=== PATIENT | male | born 1990 | race Caucasian/White ===

== ENCOUNTER 2018-02-04 21:26 | Emergency (ER) | payer OTHER, SELFPAY ==
[2018-02-05 00:36] LABS: Absolute Neutrophil 7.2 K/uL (1.8-8.0); Basophils % 0.3 % (0-1.3); Eosinophils % 1.1 % (0-4.4); Hematocrit 43.4 % (39.6-49.0); Lymphocytes % 26.2 % (15.3-44.8); MCH 30.7 pg (27.0-35.0); MCV 88.7 fL (80-100); MPV 10.7 fL (7.6-11.3); Monocytes % 8.8 % (3.3-12.3); RBC Red Blood Cell Count 4.89 M/uL (4.33-5.43)
[2018-02-05 00:44] LABS: Bicarbonate 27 mEq/L (21-31); Glucose Level 107 mg/dL (65-120); Potassium 3.3 mEq/L (3.6-5.0); Sodium Level 137 mEq/L (135-145)
[2018-02-05 00:45] LABS: BUN Blood Urea Nitrogen 10 mg/dL (6-20)
[2018-02-05] MEDS ORDERED: CYCLOBENZAPRINE 10 MG TAB ONE (01:02)
[2018-02-05] MEDS ORDERED: KETOROLAC 30 MG/ML INJ ONE (01:03)
--- NOTE | 2018-02-05 01:31 | ER ---
Nurse's Notes [facility] Name: Sachin Thomas Age: 27 yrs Sex: Male : 1990 Arrival Date: 02/04/2018 Time: 21:27 Bed 27 Private MD: Diagnosis: Chest pain, unspecified Presentation: 02/04 22:27 Presenting complaint: Patient states: that he is having chest pain that is worse with fc deep breathing and any movement. States he has a cough but denies any congestion or fever. Transition of care: patient was not received from another setting of care. Onset of symptoms was February 04, 2018. Initial Sepsis Screen: Does the patient meet any 2 criteria?. Care prior to arrival: Medication(s) given: Motrin, 400 mg, last at 1700 Lorazepam last at 1700. 22:27 Method Of Arrival: Ambulatory 22:27 Acuity: KAREL 3 02/05 01:07 Initial Sepsis Screen: Does the patient have a suspected source of infection? No. tl3 Patient's initial sepsis screen is negative. Triage Assessment: 02/04 22:32 General: Appears uncomfortable, slender, Behavior is calm, cooperative, appropriate for age. Pain: Complains of pain in chest Pain currently is 10 out of 10 on a pain scale. Quality of pain is described as aching, dull, sharp, Pain began today Is continuous, Aggravated by deep breathing or movement. EENT: No deficits noted. Neuro: Level of Consciousness is awake, alert, obeys commands, Oriented to person, place, time, situation. Cardiovascular: Reports chest pain, with movement or deep breathing Heart tones S1 S2 Capillary refill < 3 seconds Pulses are all present. Rhythm is regular Chest pain is described as vague, is located in right chest wall began today episodes are continuous is aggravated by activity, breathing. Respiratory: Airway is patent Respiratory effort is even, unlabored, Respiratory pattern is regular, symmetrical, Breath sounds are clear bilaterally. but refuses to take any deep breathes Onset: The symptoms/episode began/occurred gradually, the patient has mild shortness of breath. GI: No deficits noted. : No deficits noted. Derm: Skin is pink, warm \T\ dry. Musculoskeletal: Circulation, motion, and sensation intact. Capillary refill < 3 seconds, Range of motion: intact in all extremities. Historical: - Allergies: 22:30 No Known Allergies; fc - Home Meds: 22:30 None [Active]; fc - PMHx: 22:30 None; fc - PSHx: 22:30 None; fc - Immunization history:: Last tetanus immunization: unknown. - Social history:: Smoking status: Patient uses tobacco products, smokes one pack cigarettes per day. Patient uses alcohol, every other day. street drugs, marijuana. Screenin:32 Abuse screen: Denies threats or abuse. Nutritional screening: No deficits noted. tl3 Tuberculosis screening: No symptoms or risk factors identified. Fall Risk None identified. Assessment: 23:32 General: Appears distressed, uncomfortable, slender, well groomed, well developed, well tl3 nourished, Behavior is calm, cooperative, appropriate for age. Pain: Complains of pain in chest Pain does not radiate. Pain currently is 8 out of 10 on a pain scale. Neuro: Level of Consciousness is awake, alert, obeys commands, Oriented to person, place, time, situation, Appropriate for age. Cardiovascular: Reports chest pain, since tonight, reproducible with palpation, movement of left arm and deep breathing. Respiratory: Airway is patent Trachea midline Respiratory effort is even, unlabored, Respiratory pattern is regular, symmetrical, Breath sounds are clear bilaterally. GI: No signs and/or symptoms were reported involving the gastrointestinal system. Abdomen is flat, Bowel sounds present X 4 quads. diminished in right upper quadrant, left upper quadrant, right lower quadrant and left lower quadrant. : No signs and/or symptoms were reported regarding the genitourinary system. EENT: No signs and/or symptoms were reported regarding the EENT system. Derm: No signs and/or symptoms reported regarding the dermatologic system. 02/05 01:07 Reassessment: Patient appears in no apparent distress at this time. No changes from tl3 previously documented assessment. Patient and/or family updated on plan of care and expected duration. Pain level reassessed. Patient is alert, oriented x 3, equal unlabored respirations, skin warm/dry/pink. pt sleeping in bed, arouses easily, friend at bedside. Vital Signs: 02/04 22:30 BP 117 / 71; Pulse 61; Resp 18; Temp 98.1(O); Pulse Ox 98% on R/A; Weight 62.6 kg (R); fc Height 5 ft. 10 in. (177.80 cm); Pain 10/10; 23:32 BP 109 / 71; Pulse 55; Resp 18; Pulse Ox 98% on R/A; tl3 02/05 01:07 BP 113 / 71; Pulse 50; Resp 18; Pulse Ox 98% ; tl3 02/04 22:30 Body Mass Index 19.80 (62.60 kg, 177.80 cm) ED Course: 02/04 21:27 Patient arrived in ED. am2 22:29 Triage completed. 22:32 Arm band placed on right wrist. Patient placed in waiting room. 22:56 Rafa Fried NP is PHCP. pm1 22:56 Orlando Mix MD is Attending Physician. pm1 22:56 Sandi Bravo, SIMONA is Primary Nurse. tl3 23:32 No apparent distress. tl3 23:32 Patient has correct armband on for positive identification. Placed in gown. Bed in low tl3 position. Call light in reach. java user interface developer on. Pulse ox on. NIBP on. Warm blanket given. 23:32 No provider procedures requiring assistance completed. Inserted saline lock: 20 gauge tl3 in right forearm, using aseptic technique. Blood collected. Patient maintains SpO2 saturation greater than 95% on room air. 02/05 00:32 XRAY Chest (1 view) In Process Unspecified. EDMS 01:55 IV discontinued. rk2 Administered Medications: 01:06 Drug: TORadol 30 mg Route: IVP; Infused Over: 2 mins; Site: left forearm; tl3 01:50 Follow up: Response: No adverse reaction rk2 01:06 Drug: Flexeril 10 mg Route: PO; tl3 01:50 Follow up: Response: No adverse reaction rk2 Outcome: 01:30 Discharge ordered by . pm1 01:54 Discharged to home ambulatory. rk2 01:54 Condition: good 01:54 Discharge instructions given to patient. 01:55 Patient left the ED. rk2 Signatures: Dispatcher [employer] EDMS Sienna Knowles RN RN Rafa Fried NP CREAM HAULER pm1 Ester Ta am2 Kemi Villagomez RN RN rk2 Sandi Bravo RN RN tl3
--- NOTE | 2018-02-05 01:31 | EDPHYS ---
Physician Documentation [facility] Name: Sachin Thomas Age: 27 yrs Sex: Male : 1990 Arrival Date: 02/04/2018 Time: 21:27 Bed 27 Private MD: ED Physician Orlando Mix HPI: 02/05 01:00 This 27 yrs old Male presents to ER via Ambulatory with complaints of Chest pm1 Pain. 01:00 The patient or guardian reports chest pain that is located primarily in the anterior pm1 chest wall, right. Onset: The symptoms/episode began/occurred this morning. The pain does not radiate. Associated signs and symptoms: Pertinent positives: cough, Pertinent negatives: abdominal pain, fever, shortness of breath. Modifying factors: The patient symptoms are alleviated by nothing, the patient symptoms are aggravated by Deep breathing and palpation. Duration: The patient or guardian reports a single episode, that is still ongoing. Severity of pain: in the emergency department the pain is actually worse. The patient has not experienced similar symptoms in the past. Historical: - Allergies: 02/04 22:30 No Known Allergies; fc - Home Meds: 22:30 None [Active]; fc - PMHx: 22:30 None; fc - PSHx: 22:30 None; fc - Immunization history:: Last tetanus immunization: unknown. - Social history:: Smoking status: Patient uses tobacco products, smokes one pack cigarettes per day. Patient uses alcohol, every other day. street drugs, marijuana. ROS: 02/05 01:00 Constitutional: Negative for fever, chills, and weight loss, Eyes: Negative for injury, pm1 pain, redness, and discharge, ENT: Negative for injury, pain, and discharge, Neck: Negative for injury, pain, and swelling. Respiratory: Negative for shortness of breath, cough, wheezing, and pleuritic chest pain, Abdomen/GI: Negative for abdominal pain, nausea, vomiting, diarrhea, and constipation, Back: Negative for injury and pain, MS/Extremity: Negative for injury and deformity, Skin: Negative for injury, rash, and discoloration, Neuro: Negative for headache, weakness, numbness, tingling, and seizure. Cardiovascular: Positive for chest pain, Negative for edema, palpitations. Exam: 01:00 Constitutional: This is a well developed, well nourished patient who is awake, alert, pm1 and in no acute distress. Head/Face: Normocephalic, atraumatic. Eyes: Pupils equal round and reactive to light, extra-ocular motions intact. Lids and lashes normal. Conjunctiva and sclera are non-icteric and not injected. Cornea within normal limits. Periorbital areas with no swelling, redness, or edema. ENT: Nares patent. No nasal discharge, no septal abnormalities noted. Tympanic membranes are normal and external auditory canals are clear. Oropharynx with no redness, swelling, or masses, exudates, or evidence of obstruction, uvula midline. Mucous membranes moist. Neck: Trachea midline, no thyromegaly or masses palpated, and no cervical lymphadenopathy. Supple, full range of motion without nuchal rigidity, or vertebral point tenderness. No Meningismus. 01:00 Cardiovascular: Regular rate and rhythm with a normal S1 and S2. No gallops, murmurs, or rubs. Normal PMI, no JVD. No pulse deficits. Respiratory: Lungs have equal breath sounds bilaterally, clear to auscultation and percussion. No rales, rhonchi or wheezes noted. No increased work of breathing, no retractions or nasal flaring. Abdomen/GI: Soft, non-tender, with normal bowel sounds. No distension or tympany. No guarding or rebound. No evidence of tenderness throughout. Back: No spinal tenderness. No costovertebral tenderness. Full range of motion. Skin: Warm, dry with normal turgor. Normal color with no rashes, no lesions, and no evidence of cellulitis. MS/ Extremity: Pulses equal, no cyanosis. Neurovascular intact. Full, normal range of motion. 01:00 Chest/axilla: Inspection: normal, Palpation: crepitus, is not appreciated, tenderness, of the anterior aspect of right upper chest, that totally reproduces the patient's complaints. Vital Signs: 02/04 22:30 BP 117 / 71; Pulse 61; Resp 18; Temp 98.1(O); Pulse Ox 98% on R/A; Weight 62.6 kg (R); fc Height 5 ft. 10 in. (177.80 cm); Pain 10/10; 23:32 BP 109 / 71; Pulse 55; Resp 18; Pulse Ox 98% on R/A; tl3 02/05 01:07 BP 113 / 71; Pulse 50; Resp 18; Pulse Ox 98% ; tl3 02/04 22:30 Body Mass Index 19.80 (62.60 kg, 177.80 cm) fc MDM: 02/04 23:44 Patient medically screened. pm1 02/05 01:29 Data reviewed: vital signs, nurses notes. Data interpreted: Pulse oximetry: on room air pm1 is 98 %. Interpretation: normal. Counseling: I had a detailed discussion with the patient and/or guardian regarding: the historical points, exam findings, and any diagnostic results supporting the discharge/admit diagnosis, lab results, radiology results, the need for outpatient follow up, to return to the emergency department if symptoms worsen or persist or if there are any questions or concerns that arise at home. 02/04 23:46 Order name: Basic Metabolic Panel; Complete Time: 00:56 pm1 02/04 23:46 Order name: CBC with Diff; Complete Time: 00:44 pm1 02/04 23:46 Order name: Troponin (emerg Dept Use Only); Complete Time: 00:56 pm1 02/04 23:46 Order name: XRAY Chest (1 view) pm1 02/04 23:46 Order name: EKG; Complete Time: 23:46 pm1 02/04 23:46 Order name: Cardiac monitoring; Complete Time: 00:06 pm1 02/04 23:46 Order name: EKG - Nurse/Tech; Complete Time: 00:06 pm1 02/04 23:46 Order name: IV Saline Lock; Complete Time: 00:06 pm1 02/04 23:46 Order name: Labs collected and sent; Complete Time: 00:06 pm1 Administered Medications: 01:06 Drug: TORadol 30 mg Route: IVP; Infused Over: 2 mins; Site: left forearm; tl3 01:50 Follow up: Response: No adverse reaction rk2 01:06 Drug: Flexeril 10 mg Route: PO; tl3 01:50 Follow up: Response: No adverse reaction rk2 Disposition: 02:46 Co-signature as Attending Physician, Orlando Mix MD. Disposition: 02/05/18 01:30 Discharged to Home. Impression: Chest pain, unspecified. - Condition is Stable. - Discharge Instructions: Nonspecific Chest Pain. - Medication Reconciliation Form, Thank You Letter, Work release form form. - Follow up: Emergency Department; When: As needed; Reason: Worsening of condition. Follow up: Private Physician; When: 2 - 3 days; Reason: Recheck today's complaints, Continuance of care, Re-evaluation by your physician. - Problem is new. - Symptoms have improved. Signatures: Dispatcher [employer] EDSienna Lambert RN RN fc Rafa Fried, [employer] DATA STORAGE SPECIALIST pm1 Orlando Mix MD MD gs Kidder, Rhonda RN RN rk2 Sandi Bravo RN RN tl3
--- NOTE | 2018-02-05 07:58 | RAD REPORT ---
EXAM DESCRIPTION: Julienne Single View02/05/2018 12:32 am CLINICAL HISTORY: Chest pain COMPARISON: none FINDINGS: The lungs appear clear of acute infiltrate. The heart is normal size IMPRESSION: No acute abnormalities displayed
--- NOTE | 2018-02-05 09:15 | EKG ---
Test Date: 2018-02-05 Test Time: 00:32:34 Pump Tender: WES MEASUREMENT RESULTS: Intervals: Rate: 50 IN: 166 QRSD: 106 QT: 416 QTc: 379 [place]: P: 34 IN: 166 QRS: 51 T: 46 INTERPRETIVE STATEMENTS: Sinus bradycardia with sinus arrhythmia Otherwise normal ECG No previous ECG available for comparison Electronically Signed On 02-05-18 09:13:45 CDT by Seb Mary
== END 2018-02-05 01:55 | disposition home or self-care (01) ==
LOC: ER 21:26
DX: R07.9 Chest pain, unspecified (principal); F17.210 Nicotine dependence, cigarettes, uncomplicated
CPT/HCPCS: 36415; 71045; 80048; 84484; 85025; 93005; 96374; 99285

== ENCOUNTER 2018-09-09 19:47 | Emergency (ER) | payer SELFPAY ==
[2018-09-09] MEDS ORDERED: TETRACAINE HCL 0.5% 2ML OPTH ONE (20:28)
[2018-09-09] MEDS ORDERED: FLUORESCEIN SODIUM 0.6 MG/WRAP ONE (20:29)
--- NOTE | 2018-09-09 21:02 | ER ---
Nurse's Notes [facility] Name: Sachin Thomas Age: 27 yrs Sex: Male : 1990 Arrival Date: 09/09/2018 Time: 19:50 Bed 7 Private MD: Diagnosis: Injury of conjunctiva and corneal abrasion without foreign body, right eye Presentation: 09/09 19:53 Presenting complaint: Patient states: He got saw dust in his eye at approximately 1530 aj1 this afternoon and has not been able to get it out since. Redness and tearing noted to sclera to right eye. Transition of care: patient was not received from another setting of care. Onset of symptoms was September 09, 2018. Risk Assessment: Do you want to hurt yourself or someone else? Patient reports no desire to harm self or others. Initial Sepsis Screen: Does the patient meet any 2 criteria? No. Patient's initial sepsis screen is negative. Does the patient have a suspected source of infection? No. Patient's initial sepsis screen is negative. Care prior to arrival: None. 19:53 Method Of Arrival: Ambulatory aj1 19:53 Acuity: KAREL 4 aj1 Triage Assessment: 19:56 General: Appears in no apparent distress. uncomfortable, Behavior is cooperative, aj1 appropriate for age. Pain: Complains of pain in right eye Pain currently is 7 out of 10 on a pain scale. EENT: Eyes are tearing on right lower eyelid Sclera/Cornea are reddened in outer aspect of conjuctiva of right eye, iris of right eye and inner aspect of conjuctiva of right eye. Neuro: Level of Consciousness is awake, alert, obeys commands. Cardiovascular: Patient's skin is warm and dry. Respiratory: Airway is patent Respiratory effort is even, unlabored, Respiratory pattern is regular, symmetrical. Historical: - Allergies: 19:56 No Known Allergies; aj1 - Home Meds: 19:56 None [Active]; aj1 - PMHx: 19:56 None; aj1 - PSHx: 19:56 None; aj1 - Immunization history:: Last tetanus immunization: unknown, Flu vaccine is not up to date. - Social history:: Smoking status: Patient uses tobacco products, smokes one-half pack cigarettes per day. - Ebola Screening: : Patient denies travel to an Ebola-affected area in the 21 days before illness onset. Screenin:10 Abuse screen: Denies threats or abuse. Nutritional screening: No deficits noted. ea Tuberculosis screening: No symptoms or risk factors identified. Fall Risk None identified. Assessment: 20:14 General: Appears uncomfortable, Behavior is calm, cooperative. Pain: Complains of pain ea in right eye Quality of pain is described as burning. Neuro: Level of Consciousness is awake, alert, obeys commands, Oriented to person, place, time, situation. Cardiovascular: Patient's skin is warm and dry. Respiratory: Airway is patent Respiratory effort is even, unlabored, Respiratory pattern is regular, symmetrical. EENT: Eyes are tearing on right eye. Derm: Skin is pink, warm \T\ dry. Musculoskeletal: Circulation, motion, and sensation intact. 21:30 Reassessment: Patient and/or family updated on plan of care and expected duration. Pain ea level reassessed. Patient is alert, oriented x 3, equal unlabored respirations, skin warm/dry/pink. Discharge instructions given to patient, verbalized the understanding of instruction. 21:31 Reassessment: DC instructions given to patient and mother. Patient agree with DC ao instructions and to follow up. No question at this time. Vital Signs: 19:56 BP 129 / 83; Pulse 65; Resp 18; Temp 97.4; Pulse Ox 98% on R/A; Weight 65.77 kg (R); aj1 Height 5 ft. 10 in. (177.80 cm) (R); Pain 7/10; 20:43 BP 118 / 70; Pulse 61; Resp 18; Pulse Ox 100% on R/A; ea 19:56 Body Mass Index 20.81 (65.77 kg, 177.80 cm) aj1 Visual Acuity: 20:10 Left Eye Visual acuity 20/20, ; Right Eye Visual acuity 20/20, ; Both Eyes Visual ea acuity 20/20; Without Lenses; ED Course: 19:50 Patient arrived in ED. es 19:55 Triage completed. aj1 19:56 Arm band placed on Patient placed in an exam room. aj1 20:04 Leonel Delong MD is Attending Physician. tw4 20:05 Beverly Wilson, SIMONA is Primary Nurse. ea 20:13 Patient has correct armband on for positive identification. Bed in low position. Call ea light in reach. Side rails up X2. 21:30 Assist provider with eye exam of left eye. using fluorescein stain, Performed by chris Delong MD Patient tolerated well. Patient did not have IV access during this emergency room visit. Administered Medications: 21:30 Drug: Gentamicin Drops 0.3 % 2 drops Route: Ophthalmic; Site: right eye; ao 21:30 Follow up: Response: Medication administered at discharge. ao Outcome: 21:02 Discharge ordered by . tw4 21:31 Discharged to home ambulatory. ao 21:31 Condition: stable 21:31 Discharge instructions given to patient, Instructed on discharge instructions, follow up and referral plans. Demonstrated understanding of instructions, follow-up care, medications, Prescriptions given X 1. 21:32 Patient left the ED. ao Signatures: Annie Laguna, RN RN Nkechi Chino Alex RN RN Beverly Winters RN Leonel Irving ea, MD MD tw4
[2018-09-09] MEDS ORDERED: GENTAMICIN 0.3% OPTH DROP 5ML ONE (21:29)
[2018-09-09] MEDS ORDERED: DEXAMETHASONE 4 MG/ML VIAL ONE (23:02)
--- NOTE | 2018-09-10 21:32 | EDPHYS ---
Physician Documentation [facility] Name: Sachin Thomas Age: 27 yrs Sex: Male : 1990 Arrival Date: 09/09/2018 Time: 19:50 Bed 7 Private MD: ED Physician Leonel Delong HPI: 09/10 06:49 This 27 yrs old Male presents to ER via Ambulatory with complaints of Foreign tw4 Body In Eye. 06:49 The patient is experiencing foreign body sensation, redness, The patient sustained tw4 Unknown. Onset: The symptoms/episode began/occurred yesterday. Aggravated by nothing. Alleviated by nothing. Associated signs and symptoms: Pertinent positives: None. Severity of symptoms: At their worst the symptoms were moderate in the emergency department the symptoms are unchanged. The patient has not experienced similar symptoms in the past. Historical: - Allergies: 09/09 19:56 No Known Allergies; aj1 - Home Meds: 19:56 None [Active]; aj1 - PMHx: 19:56 None; aj1 - PSHx: 19:56 None; aj1 - Immunization history:: Last tetanus immunization: unknown, Flu vaccine is not up to date. - Social history:: Smoking status: Patient uses tobacco products, smokes one-half pack cigarettes per day. - Ebola Screening: : Patient denies travel to an Ebola-affected area in the 21 days before illness onset. ROS: 09/10 06:49 Constitutional: Negative for fever, chills, and weight loss, Eyes: Negative for injury, tw4 pain, redness, and discharge, Cardiovascular: Negative for chest pain, palpitations, and edema, Respiratory: Negative for shortness of breath, cough, wheezing, and pleuritic chest pain, Abdomen/GI: Negative for abdominal pain, nausea, vomiting, diarrhea, and constipation, MS/Extremity: Negative for injury and deformity, Skin: Negative for injury, rash, and discoloration. Exam: 06:49 Constitutional: This is a well developed, well nourished patient who is awake, alert, tw4 and in no acute distress. Head/Face: Normocephalic, atraumatic. Chest/axilla: Normal chest wall appearance and motion. Nontender with no deformity. No lesions are appreciated. Cardiovascular: Regular rate and rhythm with a normal S1 and S2. No gallops, murmurs, or rubs. Normal PMI, no JVD. No pulse deficits. Respiratory: Lungs have equal breath sounds bilaterally, clear to auscultation and percussion. No rales, rhonchi or wheezes noted. No increased work of breathing, no retractions or nasal flaring. Abdomen/GI: Soft, non-tender, with normal bowel sounds. No distension or tympany. No guarding or rebound. No evidence of tenderness throughout. MS/ Extremity: Pulses equal, no cyanosis. Neurovascular intact. Full, normal range of motion. Neuro: Awake and alert, GCS 15, oriented to person, place, time, and situation. Cranial nerves II-XII grossly intact. Motor strength 5/5 in all extremities. Sensory grossly intact. Cerebellar exam normal. Normal gait. Vital Signs: 09/09 19:56 BP 129 / 83; Pulse 65; Resp 18; Temp 97.4; Pulse Ox 98% on R/A; Weight 65.77 kg (R); aj1 Height 5 ft. 10 in. (177.80 cm) (R); Pain 7/10; 20:43 BP 118 / 70; Pulse 61; Resp 18; Pulse Ox 100% on R/A; ea 19:56 Body Mass Index 20.81 (65.77 kg, 177.80 cm) aj1 Visual Acuity: 20:10 Left Eye Visual acuity 20/20, ; Right Eye Visual acuity 20/20, ; Both Eyes Visual ea acuity 20/20; Without Lenses; MDM: 20:04 Patient medically screened. tw4 Administered Medications: 21:30 Drug: Gentamicin Drops 0.3 % 2 drops Route: Ophthalmic; Site: right eye; ao 21:30 Follow up: Response: Medication administered at discharge. ao Disposition: 09/10 06:53 Chart complete. tw4 Disposition: 09/09/18 21:02 Discharged to Home. Impression: Injury of conjunctiva and corneal abrasion without foreign body, right eye. - Condition is Stable. - Discharge Instructions: Corneal Abrasion, [id number]. - Prescriptions for Gentamicin 0.3 % Ophthalmic Drops - instill 1 drop by OPHTHALMIC route every 4 hours for 7 days; 1 bottle. - Medication Reconciliation Form, Thank You Letter, Antibiotic Education, Prescription Opioid Use form. - Follow up: Private Physician; When: Upon discharge from the Emergency Department; Reason: Further diagnostic work-up, Recheck today's complaints, Continuance of care. - Problem is new. - Symptoms have improved. Signatures: Annie Laguna RN RN aj1 Adriel Dunbar RN RN Leonel Haley MD MD tw4 Corrections: (The following items were deleted from the chart) 09/09 21:32 21:02 09/09/2018 21:02 Discharged to Home. Impression: Injury of conjunctiva and ao corneal abrasion without foreign body, right eye. Condition is Stable. Forms are Medication Reconciliation Form, Thank You Letter, Antibiotic Education, Prescription Opioid Use. Follow up: Private Physician; When: Upon discharge from the Emergency Department; Reason: Further diagnostic work-up, Recheck today's complaints, Continuance of care. Problem is new. Symptoms have improved. tw4
== END 2018-09-09 21:32 | disposition home or self-care (01) ==
LOC: ER 19:47
DX: S05.01XA Injury of conjunctiva and corneal abrasion without foreign body, right eye, initial encounter (principal); F17.210 Nicotine dependence, cigarettes, uncomplicated
CPT/HCPCS: 99283

== ENCOUNTER 2023-05-21 07:32 | Emergency (ER) | payer SELFPAY ==
--- OUTSIDE RECORDS SUMMARY | 2023-05-21 07:35 | XMS REPORT | Continuity of Care Document ---
:1990 Author Organization [facility] t Address [address] [place] [address] [place] [id number] Care Team Providers Name Role Phone Pcp, Patient Does Not Have A Primary Care Physician [id number] Ester Rousseau MD Attending Clinician Gi Howe PA-C Attending Clinician GI HOWE Attending Clinician Unavailable Problems Condition Condition Condition Status Onset Resolution Last Treating Co mments Source Name Details Category Date Date Treatment Clinician Date No known No known Disease Unive rs active active ity of problems problems [facility] Allergies, Adverse Reactions, Alerts Allergy Allergy Status Severity Reaction(s) Onset Inactive Treating Comm ents Source Name Type Date Date Clinician NO KNOWN Drug Active Univers ALLERGIE Class ity of S [facility] Social History Social Habit Start Date Stop Date Quantity Comments Source Exposure to Not sure [facility] SARS-CoV-2 (event) Medica l Branch Tobacco use and 2019-07-05 2019-07-05 Never used [facility] exposure 00:00:00 00:00:00 [facility] Sex Ass[birth year] At [birth year] [facility] 00:00:00 00:00:00 [facility] Smoking Status Start Date Stop Date Source Current every day smoker 2019-07-05 00:00:00 Uni versity [facility] Medications Ordered Filled Start Stop Current Ordering Indication Dosage Frequency Signature Comments Components Source Medication Medication Date Date Medication? Clinician (SIG) Name Name azelastine Yes [id number] 1{spray Use 1 Univers 137 mcg 1-03 } [place] in ity of (0.1 %) 00:00: each [place] nasal spray 00 nostril 2 Med ical (two) Branch times daily. Use in each nostril as directed fluticasone Yes [id number] 1{spray Use 1 Univers propionate 03 } [place] in ity o f 50 00:00: each [place] mcg/actuati 00 nostril Medic al on nasal daily. Branch spray cetirizine Yes [id number] 10mg Take 1 Univers (ZYRTEC) 10 10-22 tablet by ity of mg tablet 00:00: mouth [place] 00 daily. Medical Branch amoxicillin 2021- No [id number] 1{tbl} Take 1 Univers -clavulanat 10-22 tablet by it y of e 00:00: 05:59 mouth 2 [place] (AUGMENTIN) 00 :00 (two) Medical 875-125 mg times Branch per tablet daily for 7 days. Vital Signs Vital Name Observation Time Observation Value Comments Source Systolic blood 2021-10-22 20:56:00 138 [facility]astolic [facility] 2021-10-22 20:56:00 87 mm[Hg] [facility] Heart rate 2021-10-22 20:56:00 84 /min [facility] Body temperature 2021-10-22 20:56:00 36.67 [facility] Respiratory rate 2021-10-22 20:56:00 18 /min [facility] Body height 2021-10-22 20:56:00 177.8 cm [facility] Body weight 2021-10-22 20:56:00 72.576 kg [facility] BMI 2021-10-22 20:56:00 22.96 kg/m2 [facility] Oxygen saturation in 2021-10-22 20:56:00 97 /min [facility] Arterial blood by [facility] Pulse oximetry Branch Procedures This patient has no known procedures. Encounters Start End Encounter Admission Attending Care Care Encounter Source Date/Time Date/Time Type Type Clinicians Facility Department ID 2021-10-22 2021-10-22 Urgent Ester Rousseau [facility] [id number] Univers 15:00[facility]00 [facility]20:00 [id number] [id number] Drew as GINA?BLEA [id number] Ri ryne [address] MEDICAL OFFICE BUILDING 2021-10-22 2021-10-22 Outpatient R [facility] [id number] Univers 15:00:00 15:00:00 [id number] [facility] 2021-10-22 2021-10-22 [facility] [id number] Univers 15:00:00 15:00:00 GI [facility] Results This patient has no known results.
[2023-05-21 07:54] LABS: Absolute Lymphocytes (CBC) 1.8 K/uL (0.7-4.9); Hematocrit 42.3 % (39.6-49.0); Lymphocytes % 31.5 % (15.3-44.8); MCV 87.1 fL (80-100); MPV 9.5 fL (7.6-11.3); RBC Red Blood Cell Count 4.86 M/uL (4.33-5.43)
[2023-05-21] MEDS ORDERED: KETOROLAC 30 MG/ML INJ ONE (07:54)
[2023-05-21] MEDS ORDERED: dexAMETHasone 10 MG/ML VIAL ONE (07:54)
--- NOTE | 2023-05-21 08:13 | RAD REPORT ---
EXAM DESCRIPTION: CT - Chest For Pe Angio - 05/21/2023 7:58 am CLINICAL HISTORY: Chest pain COMPARISON: None. TECHNIQUE: Dynamically enhanced axial 3 mm thick images of the chest were obtained during administra tion of 100 mL Isovue 370 IV contrast. Coronal and oblique reconstruction images were generated and r eviewed. Exam utilizes a protocol for optimal evaluation of pulmonary arterial tree. Maximum intensity projections 3D imaging was utilized All CT scans are performed using dose optimization technique as appropriate and may include automated exposure control or mA/KV adjustment according to patient size. FINDINGS: A pulmonary embolus is not seen. Bovine aorta. The aortic root measures 3.8 centimeters. A pleural effusion is not seen. A pericardial effusion is not seen. A lung consolidation is not present. IMPRESSION: Negative for a pulmonary embolism.
[2023-05-21 08:14] LABS: Albumin 3.9 g/dL (3.4-5.0); Bilirubin Direct 0.2 mg/dL (0-0.2); Bilirubin Indirect, Calculated 0.8 mg/dL (0.2-0.8); Potassium 3.8 mEq/L (3.5-5.1); Protein, Total 7.8 g/dL (6.4-8.2)
--- NOTE | 2023-05-21 08:26 | EDPHYS ---
Physician Documentation [facility] Name: Sachin Thomas Age: 32 yrs Sex: Male : 1990 Arrival Date: 05/21/2023 Time: 07:32 Bed 4 Private MD: ED Physician Ziyad Nolasco HPI: 05/21 08:08 This 32 yrs old Male presents to ER via Ambulatory with complaints of Chest Pain. rn 08:08 The patient or guardian reports chest pain that is located primarily in the right rn lateral anterior chest. The pain does not radiate. Associated signs and symptoms: Pertinent negatives: abdominal pain, cough, palpitations, shortness of breath. The chest pain is described as sharp, stabbing. Duration: The patient or guardian reports multiple episodes. Modifying factors: The symptoms are alleviated by nothing. the symptoms are aggravated by deep breath, movement, palpation of area. 08:10 Severity of pain: At its worst the pain was moderate in the emergency department the rn pain is unchanged. The patient has not experienced similar symptoms in the past. Pt reports right sided chest pain, sharp and stabbing, worse with deep breath, no recent injury, no fever/cough, + vapes. NO hx of dvt/PE. No abd pain or vomiting. No hemoptysis. . Historical: - Allergies: 07:49 No Known Allergies; me1 - PMHx: 07:49 None; me1 - PSHx: 07:49 None; me1 - Immunization history:: Adult Immunizations unknown. - Social history:: Smoking status: Reported history of juuling and/or vaping. - Family history:: not pertinent. - Hospitalizations: : No recent hospitalization is reported. ROS: 08:10 Constitutional: Negative for fever, chills, and weight loss, Cardiovascular: + chest rn pain Respiratory: + stabbing chest pain with deep breath Abdomen/GI: Negative for abdominal pain, nausea, vomiting, diarrhea, and constipation, MS/Extremity: Negative for injury and deformity, Skin: Negative for injury, rash, and discoloration, Neuro: Negative for headache, weakness, numbness, tingling, and seizure. Exam: 08:10 Constitutional: This is a well developed, well nourished patient who is awake, alert, rn appears uncomfortable Head/Face: Normocephalic, atraumatic. Cardiovascular: Bradycardic, regular. No pulse deficits. Respiratory: Diminished breath sounds at bilateral bases, no wheezing, no crepitus Abdomen/GI: soft, non-tender Skin: Warm, dry MS/ Extremity: Pulses equal, no cyanosis. Neurovascular intact. Full, normal range of motion. Equal circumference. Neuro: Awake and alert, GCS 15 08:30 ECG was reviewed by the Attending Physician. rn Vital Signs: 07:43 BP 117 / 72; Pulse 51; Resp 16; Temp 98.4(O); Pulse Ox 100% on R/A; Weight 68.04 kg; me1 Height 5 ft. 10 in. ; Pain 8/10; 08:00 BP 115 / 82; Pulse 50; Resp 18; Pulse Ox 99% on R/A; db 08:30 BP 114 / 75; Pulse 55; Resp 16; Pulse Ox 99% on R/A; db 07:43 Body Mass Index 21.52 (68.04 kg, 177.8 cm) me1 07:43 Pain Scale: Adult me1 MDM: 07:35 Patient medically screened. rn 08:24 Differential diagnosis: acute pericarditis, anxiety, chest wall pain, costochondritis, rn esophagitis, gastritis, gastroesophageal reflux disease (GERD), pericarditis, pleurisy, pneumonia, pneumothorax, pulmonary embolus. Data reviewed: vital signs, nurses notes, lab test result(s), EKG, radiologic studies, CT scan, and as a result, I will discharge patient. Counseling: I had a detailed discussion with the patient and/or guardian regarding: the historical points, exam findings, and any diagnostic results supporting the discharge/admit diagnosis, lab results, radiology results, the need for outpatient follow up, to return to the emergency department if symptoms worsen or persist or if there are any questions or concerns that arise at home. Special discussion: Based on the patient's history, exam, and Dx evaluation, there is no indication for emergent intervention or inpatient Tx. It is understood by the patient/guardian that if the Sx's persist or worsen they need to return immediately for re-evaluation. I discussed with the patient/guardian in detail that at this point there is no indication for admission to the hospital. It is understood, however, that if the symptoms persist or worsen the patient needs to return immediately for re-evaluation. ED course: NO acute findings in workup here, including CT PE. Will dc home as possible pleurisy vs chest wall strain as he has been working on his house and reproducible with palpation and movement. . 05/21 07:42 Order name: Basic Metabolic Panel; Complete Time: 08:15 rn 05/21 07:42 Order name: CBC with Diff; Complete Time: 08:15 rn 05/21 07:42 Order name: LFT's; Complete Time: 08:15 rn 05/21 07:42 Order name: NT PRO-BNP; Complete Time: 08:15 rn 05/21 07:42 Order name: Troponin HS; Complete Time: 08:15 rn 05/21 07:42 Order name: CT Chest For PE Angio; Complete Time: 08:15 rn 05/21 07:42 Order name: EKG; Complete Time: 07:43 rn 05/21 07:42 Order name: Cardiac monitoring; Complete Time: 07:45 rn 05/21 07:42 Order name: EKG - Nurse/Tech; Complete Time: 07:45 rn 05/21 07:42 Order name: IV Saline Lock; Complete Time: 07:45 rn 05/21 07:42 Order name: Labs collected and sent; Complete Time: 07:45 rn 05/21 07:42 Order name: O2 Per Protocol; Complete Time: 07:45 rn 05/21 07:42 Order name: O2 Sat Monitoring; Complete Time: 07:45 rn EC:30 Rate is 55 beats/min. Rhythm is regular. QRS Warner is Normal. ID interval is normal. QRS rn interval is normal. QT interval is normal. No Q waves. T waves are Normal. No ST changes noted. Clinical impression: Sinus bradycardia. Interpreted by me. Reviewed by me. Administered Medications: 07:51 Drug: Ketorolac IVP 30 mg Route: IVP; Site: right antecubital; db 08:44 Follow up: Response: No adverse reaction db 07:51 Drug: Decadron - Dexamethasone IVP 10 mg Route: IVP; Site: right antecubital; db 08:44 Follow up: Response: No adverse reaction db Disposition Summary: 05/21/23 08:25 Discharge Ordered Location: Home rn Problem: new rn Symptoms: have improved rn Condition: Stable rn Diagnosis - Chest pain, unspecified rn Followup: rn - With: Private Physician - When: As needed - Reason: Recheck today's complaints, Re-evaluation by your physician Discharge Instructions: - Discharge Summary Sheet rn - Nonspecific Chest Pain, Adult rn - Chest Wall Pain rn - Pleurisy rn Forms: - Medication Reconciliation Form rn - Thank You Letter rn - Antibiotic cv rn - Prescription Opioid Use rn - Patient Portal Instructions rn - Work release form db Prescriptions: - Cyclobenzaprine 10 mg Oral Tablet - take 1 tablet by ORAL route every 8 to 12 hours As needed; 15 tablet; Refills: rn 0, Product Selection Permitted - Diclofenac Sodium 75 mg Oral tablet,delayed release (DR/EC) - take 1 tablet by ORAL route 2 times per day; 20 tablet; Refills: 0, Product rn Selection Permitted Signatures: Dispatcher [employer] EDZiyad Velazquez MD MD rn Benton, Danielle, RN RN db Eddleman, Michelle, SIMONA RN me1
--- NOTE | 2023-05-21 08:26 | ER ---
Nurse's Notes [facility] Name: Sachin Thomas Age: 32 yrs Sex: Male : 1990 Arrival Date: 05/21/2023 Time: 07:32 Bed 4 Private MD: Diagnosis: Chest pain, unspecified Presentation: 05/21 07:43 Chief complaint: Patient states: right chest pain that started on Friday and has me1 worsened. Denies injury, Denies being sick recently. Reports that he does vape daily. Coronavirus screen: Vaccine status: Patient reports being unvaccinated. Ebola Screen: No symptoms or risks identified at this time. Initial Sepsis Screen: Does the patient meet any 2 criteria? No. Patient's initial sepsis screen is negative. Does the patient have a suspected source of infection? No. Patient's initial sepsis screen is negative. Risk Assessment: Do you want to hurt yourself or someone else? Patient reports no desire to harm self or others. Onset of symptoms was May 18, 2023. 07:43 Method Of Arrival: Ambulatory [facility] 07:43 Acuity: KAREL 3 me1 Triage Assessment: 07:49 General: Appears uncomfortable, well groomed, well developed, well nourished, Behavior me1 is calm, cooperative, appropriate for age, Denies fever, feeling ill, fatigue, chills. Pain: Complains of pain in right chest Pain does not radiate. Pain currently is 8 out of 10 on a pain scale. Quality of pain is described as sharp, stabbing, Pain began 2-3 days ago. Neuro: Level of Consciousness is awake, alert, obeys commands, Oriented to person, place, time, situation. Cardiovascular: Capillary refill < 3 seconds Patient's skin is warm and dry. Respiratory: Respiratory effort is even, unlabored, Respiratory pattern is regular, symmetrical. Historical: - Allergies: 07:49 No Known Allergies; me1 - PMHx: 07:49 None; me1 - PSHx: 07:49 None; me1 - Immunization history:: Adult Immunizations unknown. - Social history:: Smoking status: Reported history of juuling and/or vaping. - Family history:: not pertinent. - Hospitalizations: : No recent hospitalization is reported. Screenin:42 [facility] ED Fall Risk Assessment (Adult) History of falling in the last 3 months, db including since admission No falls in past 3 months (0 pts) Confusion or Disorientation No (0 pts) Intoxicated or Sedated No (0 pts) Impaired Gait No (0 pts) Mobility Assist Device Used No (0 pt) Altered Elimination No (0 pt) Score/Fall Risk Level 0 - 2 = Low Risk Oriented to surroundings, Maintained a safe environment. Abuse screen: Denies threats or abuse. Denies injuries from another. Nutritional screening: No deficits noted. Tuberculosis screening: No symptoms or risk factors identified. Assessment: 07:45 Reassessment: Patient appears in no apparent distress at this time. Patient and/or db family updated on plan of care and expected duration. Pain level reassessed. Patient is alert, oriented x 3, equal unlabored respirations, skin warm/dry/pink. General: Appears in no apparent distress. Behavior is calm, cooperative. Pain: Complains of pain in right lateral anterior chest. Pain: Pain does not radiate. Neuro: Level of Consciousness is awake, alert, obeys commands, Oriented to person, place, time, situation. 08:42 Visitor restriction implemented due to in-person visitations may lead to the db transmission of an infectious agent. Restricted visitation is valid for not more than 5 days unless renewed by the attending provider. Reassessment: Patient appears in no apparent distress at this time. Patient and/or family updated on plan of care and expected duration. Pain level reassessed. Patient is alert, oriented x 3, equal unlabored respirations, skin warm/dry/pink. Patient states feeling better. Patient states symptoms have improved. General: Appears in no apparent distress. comfortable. Vital Signs: 07:43 BP 117 / 72; Pulse 51; Resp 16; Temp 98.4(O); Pulse Ox 100% on R/A; Weight 68.04 kg; me1 Height 5 ft. 10 in. ; Pain 8/10; 08:00 BP 115 / 82; Pulse 50; Resp 18; Pulse Ox 99% on R/A; db 08:30 BP 114 / 75; Pulse 55; Resp 16; Pulse Ox 99% on R/A; db 07:43 Body Mass Index 21.52 (68.04 kg, 177.8 cm) me1 07:43 Pain Scale: Adult dc1 ED Course: 07:34 Patient arrived in ED. rg4 07:35 Ziyad Nolasco MD is Attending Physician. rn 07:39 Mónica White, RN is Primary Nurse. db 07:45 Arm band placed on Patient placed in an exam room. db 07:49 Triage completed. me1 07:50 Inserted saline lock: 20 gauge in right antecubital area, using aseptic technique. bp Blood collected. 07:59 CT Chest For PE Angio In Process Unspecified. EDMS 08:42 No provider procedures requiring assistance completed. IV discontinued, intact, db bleeding controlled, No redness/swelling at site. Patient maintains SpO2 saturation greater than 95% on room air. 08:42 Patient has correct armband on for positive identification. Bed in low position. Call db light in reach. Side rails up X 1. Provided Education on: DISCHARGE. Client placed on continuous cardiac and pulse oximetry monitoring. NIBP monitoring applied. Administered Medications: 07:51 Drug: Ketorolac IVP 30 mg Route: IVP; Site: right antecubital; db 08:44 Follow up: Response: No adverse reaction db 07:51 Drug: Decadron - Dexamethasone IVP 10 mg Route: IVP; Site: right antecubital; db 08:44 Follow up: Response: No adverse reaction db Medication: 08:42 VIS not applicable for this client. db Outcome: 08:25 Discharge ordered by . rn 08:42 Discharged to home ambulatory. db 08:42 Condition: stable 08:42 Discharge instructions given to patient, Instructed on discharge instructions, follow up and referral plans. Prescriptions given X 2. 08:44 Patient left the ED. db Signatures: Dispatcher [employer] EDMI Ziyad Nolasco MD MD rn Garcia, Rubi rg4 Sang Levy, RN RN bp Mónica White, RN RN db Tiffani Maldonado, RN RN me1
[2023-05-21 08:57] VITALS: TEMP 98.4
[2023-05-21 09:02] VITALS: O2SAT 99
[2023-05-21 09:08] VITALS: BP 114/75
== END 2023-05-21 08:44 | disposition home or self-care (01) ==
LOC: ER 07:32
DX: R07.89 Other chest pain (principal)
CPT/HCPCS: 36415; 71275; 80048; 80076; 83880; 84484; 85025; 93005; J1100; Q9967